=== PATIENT | male | born 1995 | race Caucasian/White ===

== ENCOUNTER 2018-08-06 19:07 | Emergency (ER) | payer MEDICAID, OTHER ==
[~2018-08-06] VITALS: Ht 182.9 cm; Wt 136.4 kg
[2018-08-06] MEDS ORDERED: IBUP-1022 PO (21:24)
[2018-08-06 21:31] VITALS: BP 123/75
--- NOTE | 2018-08-07 00:57 | REP ---
Clinical: Trauma. Technique: AP, lateral views right forearm . Findings: The osseous structures and joint spaces are intact and normal. There is no evidence for acute fracture or dislocation. Surrounding soft tissues are unremarkable. No subcutaneous emphysema or radiodense foreign body. Impression: No acute fracture or dislocation. Electronically Signed by Jose Villafuerte MD 08/07/2018 12:49 A
== END 2018-08-06 21:41 | disposition home or self-care (01) ==
LOC: M ED 19:07
DX: S50.11XA Contusion of right forearm, initial encounter (principal); W19.XXXA Unspecified fall, initial encounter; Y92.099 Unspecified place in other non-institutional residence as the place of occurrence of the external cause; Y93.9 Activity, unspecified; Y99.9 Unspecified external cause status

== ENCOUNTER → 2018-11-22 | Outpatient (CLI) | payer OTHER ==
[~2018-11-22] MED LIST: IBUP-1022 PO
[2018-11-22 17:54] LABS: ALT/SGPT 53 U/L (12-78); BILIRUBIN,TOTAL 0.5 MG/DL (0.2-1.0); BLOOD UREA NITROGEN 10 MG/DL (7-18); CALCIUM LEVEL 9.1 MG/DL (8.5-10.1); CARBON DIOXIDE LEVEL 32 MEQ/L (21-32); CHLORIDE LEVEL 106 MEQ/L (98-107); CHOLESTEROL LEVEL 198 MG/DL (<200); CREATININE FOR GFR 1.02 MG/DL (0.70-1.30); FREE T4 0.77 NG/DL (0.76-1.46); GLOMERULAR FILTRATION RATE > 60.0 (>60); GLUCOSE, FASTING 86 MG/DL (70-100); HDL CHOLESTEROL 38 MG/DL (>40); LDL CHOLESTEROL 113 MG/DL (<100); NON-HDL-C 160 MG/DL; POTASSIUM SERUM 3.9 MEQ/L (3.5-5.1); SODIUM LEVEL 141 MEQ/L (136-145); TOTAL PROTEIN 7.5 GM/DL (6.4-8.2); TRIGLYCERIDES LEVEL 234 MG/DL (<150)
[2018-11-22 18:19] LABS: HEMOGLOBIN A1c 5.3 %
== END ==
LOC: M SMT 14:57
PROVIDERS: ATTEND Physician Assistant
DX: E66.01 Morbid (severe) obesity due to excess calories (principal)

== ENCOUNTER 2020-11-29 08:26 | Emergency (ER) | payer OTHER ==
[~2020-11-29] VITALS: Ht 193 cm; Wt 153.0 kg
[2020-11-29] MEDS ORDERED: ALBUTEROL 90 MCG/ACT 8GM HFA INHALER INH ONE (09:10)
--- NOTE | 2020-11-29 10:09 | REP ---
INDICATION: sob, wheezing COMPARISON: 10/10/2015 TECHNIQUE: Portable AP view of the chest FINDINGS: The mediastinum and cardiac silhouette are stable and within normal limits for portable technique. The lung chua are clear without acute consolidation, effusion, or pneumothorax. Skeletal structures are intact. IMPRESSION: No acute cardiopulmonary process appreciated. <Electronically signed by Jose Villafuerte > 11/29/20 [id number]
[2020-11-29] MEDS ORDERED: DOXY1CAP62 PO (10:42)
[2020-11-29] MEDS ORDERED: VENTAER INH (10:42)
[2020-11-29] MEDS ORDERED: PRED20TA PO (10:42)
[2020-11-29] MEDS ORDERED: predniSONE 20 MG TAB PO ONE (10:45)
[2020-11-29 10:55] VITALS: BP 130/78
== END 2020-11-29 10:59 | disposition home or self-care (01) ==
LOC: M ED 08:26
DX: J20.9 Acute bronchitis, unspecified (principal); F17.290 Nicotine dependence, other tobacco product, uncomplicated
CPT/HCPCS: 71045; 94640; 94664; 99284; J7512; U0003